=== PATIENT | female | born 1995 | race African-American/Black ===

== ENCOUNTER 2018-05-12 15:50 | Emergency (ER) | payer MEDICAID ==
[~2018-05-12] VITALS: Ht 160 cm; Wt 70.3 kg
[2018-05-12] MEDS ORDERED: MEDROLDOSEPACK PO (16:25)
[2018-05-12] MEDS ORDERED: VENTOLIN HFA 1818 GM INH (16:25)
[2018-05-12 16:57] VITALS: BP 118/65
== END 2018-05-12 16:58 | disposition home or self-care (01) ==
LOC: M.ERS 15:50
DX: J45.901 Unspecified asthma with (acute) exacerbation (principal)